=== PATIENT | female | born 1955 | race Caucasian/White ===

== ENCOUNTER 2023-04-24 09:13 | Outpatient (RCR) | payer MEDICARE, OTHER, SELFPAY | END 2023-04-24 23:59 | disposition home or self-care (01) | LOC: RST 09:13 | PROVIDERS: ATTENDING PHYSICIAN Physical Medicine & Rehabilitation; FAMILY PHYSICIAN Nurse Practitioner | DX: I69.318 Other symptoms and signs involving cognitive functions following cerebral infarction (principal); I67.9 Cerebrovascular disease, unspecified | CPT/HCPCS: 97010; 97110; 97112; 97116; 97129; 97130; 97530; 97535; 97760 ==

== ENCOUNTER 2023-04-25 15:10 | Outpatient (RCR) | payer MEDICARE, OTHER, SELFPAY | END 2023-04-25 23:59 | disposition home or self-care (01) | LOC: RPT 15:10 | PROVIDERS: ATTENDING PHYSICIAN Student in an Organized Health Care Education/Training Program; FAMILY PHYSICIAN Nurse Practitioner | DX: I97.2 Postmastectomy lymphedema syndrome (principal); C50.911 Malignant neoplasm of unspecified site of right female breast; Z73.6 Limitation of activities due to disability | CPT/HCPCS: 97140; 97163; 97535 ==

== ENCOUNTER 2023-05-24 13:45 | Outpatient (RCR) | payer MEDICARE, OTHER, SELFPAY | END 2023-05-24 23:59 | disposition home or self-care (01) | LOC: RPT 13:45 | PROVIDERS: ATTENDING PHYSICIAN Student in an Organized Health Care Education/Training Program; FAMILY PHYSICIAN Nurse Practitioner | DX: I69.318 Other symptoms and signs involving cognitive functions following cerebral infarction (principal); I69.311 Memory deficit following cerebral infarction; I69.351 Hemiplegia and hemiparesis following cerebral infarction affecting right dominant side; Z73.6 Limitation of activities due to disability; Z74.09 Other reduced mobility | CPT/HCPCS: 97140 ==

== ENCOUNTER 2023-05-31 11:15 | Outpatient (RCR) | payer MEDICARE, OTHER, SELFPAY | END 2023-05-31 23:59 | disposition home or self-care (01) | LOC: RST 11:15 | PROVIDERS: ATTENDING PHYSICIAN Physical Medicine & Rehabilitation; FAMILY PHYSICIAN Nurse Practitioner | DX: I69.318 Other symptoms and signs involving cognitive functions following cerebral infarction (principal); I69.354 Hemiplegia and hemiparesis following cerebral infarction affecting left non-dominant side; Z73.6 Limitation of activities due to disability; Z74.09 Other reduced mobility; I69.328 Other speech and language deficits following cerebral infarction; I69.310 Attention and concentration deficit following cerebral infarction; I69.311 Memory deficit following cerebral infarction; C50.919 Malignant neoplasm of unspecified site of unspecified female breast | CPT/HCPCS: 97110; 97112; 97116; 97129; 97130; 97530; 97535 ==

== ENCOUNTER 2023-06-29 12:51 | Outpatient (RCR) | payer MEDICARE, OTHER, SELFPAY | END 2023-06-29 23:59 | disposition home or self-care (01) | LOC: RST 12:51 | PROVIDERS: ATTENDING PHYSICIAN Physical Medicine & Rehabilitation; FAMILY PHYSICIAN Nurse Practitioner | DX: I69.318 Other symptoms and signs involving cognitive functions following cerebral infarction (principal); I69.310 Attention and concentration deficit following cerebral infarction; I69.311 Memory deficit following cerebral infarction; Z74.09 Other reduced mobility; Z73.6 Limitation of activities due to disability | CPT/HCPCS: 97010; 97110; 97112; 97129; 97130; 97530; 97535 ==

== ENCOUNTER 2023-07-06 12:45 | Outpatient (RCR) | payer MEDICARE, OTHER, SELFPAY | END 2023-07-06 23:59 | disposition home or self-care (01) | LOC: RST 12:45 | PROVIDERS: ATTENDING PHYSICIAN Physical Medicine & Rehabilitation; FAMILY PHYSICIAN Nurse Practitioner | DX: I69.318 Other symptoms and signs involving cognitive functions following cerebral infarction (principal); Z73.6 Limitation of activities due to disability | CPT/HCPCS: 97010; 97110; 97129; 97130; 97140; 97530; 97535 ==

== ENCOUNTER 2023-07-31 13:27 | Outpatient (RCR) | payer MEDICARE, OTHER, SELFPAY | END 2023-07-31 14:27 | disposition home or self-care (01) | LOC: RPT 13:27 | PROVIDERS: ATTENDING PHYSICIAN Student in an Organized Health Care Education/Training Program; FAMILY PHYSICIAN Nurse Practitioner | DX: I97.2 Postmastectomy lymphedema syndrome (principal); C50.919 Malignant neoplasm of unspecified site of unspecified female breast; Z73.6 Limitation of activities due to disability | CPT/HCPCS: 97110; 97140; 97535 ==

== ENCOUNTER 2023-08-31 13:33 | Outpatient (RCR) | payer MEDICARE, OTHER, SELFPAY | END 2023-08-31 23:59 | disposition home or self-care (01) | LOC: RST 13:33 | PROVIDERS: ATTENDING PHYSICIAN Physical Medicine & Rehabilitation; FAMILY PHYSICIAN Nurse Practitioner | DX: I69.318 Other symptoms and signs involving cognitive functions following cerebral infarction (principal); R27.8 Other lack of coordination; I97.2 Postmastectomy lymphedema syndrome; Z73.6 Limitation of activities due to disability | CPT/HCPCS: 97010; 97110; 97129; 97130; 97530; 97535; 97760 ==

== ENCOUNTER 2023-09-28 13:47 | Outpatient (RCR) | payer MEDICARE, OTHER, SELFPAY | END 2023-09-28 23:59 | disposition home or self-care (01) | LOC: RST 13:47 | PROVIDERS: ATTENDING PHYSICIAN Physical Medicine & Rehabilitation; FAMILY PHYSICIAN Nurse Practitioner | DX: I69.318 Other symptoms and signs involving cognitive functions following cerebral infarction (principal) | CPT/HCPCS: 97129; 97130; 97530; 97535; 97760 ==

== ENCOUNTER → 2023-10-10 09:59 | Outpatient (REF) | payer MEDICARE, OTHER, SELFPAY | LOC: RAD 09:59 | PROVIDERS: ATTENDING PHYSICIAN Surgery Vascular Surgery; FAMILY PHYSICIAN Nurse Practitioner; REFERRING PHYSICIAN Student in an Organized Health Care Education/Training Program | DX: I65.21 Occlusion and stenosis of right carotid artery (principal) | CPT/HCPCS: 93880 ==

== ENCOUNTER 2023-10-10 10:44 | Emergency (ER) | payer MEDICARE, OTHER, SELFPAY ==
[2023-10-10 10:58] VITALS: BP 162/88
--- NOTE | 2023-10-10 11:09 | ED.GENMED ---
History of Present Illness
General
Chief Complaint: Fall
Source: patient and family
Exam Limitations: none
Time Seen by Provider: 10/10/23 11:03
History of Present Illness
History of Present Illness:
68-year-old female who presents after she fell. Patient states she was coming out of the hospital after test and her foot slipped off the curb and she fell onto the concrete. She reports no complaints. She states she feels fine. She did hit the
left eyebrow. No neck pain. Has chronic back pain but no new back pain. No motor weakness. Reports a small abrasion to the left hand and knees. Denies numbness or tingling. No nausea or vomiting
Past History
Past History
ED Past Medical History: Cancer, GERD (barretts), HTN and Other (cerv/lumbar HNP)
ED Past Surgical History: Orthopedic
Social History
Tobacco: Non-smoker
Alcohol: None
Drug: None
Living: with family
Phy Exam
Physical Exam
Physical Exam:
CONSTITUTIONAL Patient alert and oriented to person, place and time. Well-appearing. Vital signs reviewed.
HEAD small abrasion to the left eyebrow.
EYES eyelids normal to inspection, Pupils equally round and reactive to light, Extraocular muscles intact, Conjunctiva normal, Sclera normal.
NECK normal range of motion, Trachea midline, no jugular venous distention. No midline tenderness
RESPIRATORY CHEST No respiratory distress noted, Chest expansion equal
BACK normal inspection, no obvious deformities, no midline tenderness
UPPER EXTREMITY range of motion normal, Motor strength normal, no cyanosis, no edema. Small left palmar abrasion. No bony wrist or elbow or forearm tenderness. No humerus tenderness. Normal range of motion of the shoulder
LOWER EXTREMITY range of motion normal, Motor strength normal, no cyanosis, no edema. Normal range of motion of bilateral knees and hip
NEURO Speech normal, No focal motor deficits, [place] coma scale 15, Memory normal, Cranial Nerves intact to screening exam.
SKIN skin warm, dry, and normal in color.
PSYCHIATRIC patient oriented to person place and time, Normal affect.
Course
Orders/Labs/Results
Orders:
Orders
10/10/23 11:09
CT Head W/o Iv Contrast Urgent
Comment:
Reason For Exam: fall
Acetaminophen [Tylenol] 650 mg PO NOW STA
10/10/23 11:21
Acetaminophen [Tylenol] 650 mg .ROUTE .STK-MED ONE
Vital Signs
Initial and Last Documented VS:
Initial Vital Signs
Temp Pulse Resp BP Pulse Ox
98.3 F 83 18 162/88 92
10/10/23 10:58 10/10/23 10:58 10/10/23 10:58 10/10/23 10:58 10/10/23 10:58
Last Documented Vital Signs
Temp Pulse Resp BP Pulse Ox
98.3 F 83 18 162/88 92
10/10/23 10:58 10/10/23 10:58 10/10/23 10:58 10/10/23 10:58 10/10/23 10:58
MDM/Problems Addressed
MDM/Problems Addressed:
acute Head injury, acute abrasions
*Radiology
Radiology exam reviewed: radiology read reviewed
*Pulse Oximetry
Patient hypoxic: no
*Critical Care Note
Total Time (30-74mins, 75-104mins- exclusive of procedures): Not Applicable
Data Reviewed
Source: patient
Further Testing Considered But Not Given:
considered CT cervical spine but no midline TTP
Patient Management
Escalation/DeEscalation of care consider admission/obs:
Nonfocal neuroexam. CT negative. Okay for discharge
ED Attending Note
-
Portions of this chart may have been created with voice recognition software.� Occasional wrong word or��sound alike� substitutions may have occurred due to the inherent limitations of voice recognition software.
Discharge Plan
Departure
Patient Disposition: Home (Routine Discharge)
Date of Disposition: 10/10/23
Time of Disposition: 12:12
Patient with high blood pressure during this ER visit?: Yes
Discharge Problem:
Head injury
Instructions: Head Injury in Adults (DC), BLOOD PRESSURE
Prescriptions:
No Action
escitalopram oxalate 10 MG tablet
10 mg PO DAILY
multivitamin Tablet
1 tab PO DAILY
olanzapine [Zyprexa] 5 mg Tablet
5 mg PO HS
esomeprazole magnesium [Nexium] 40 mg Capsule,Delayed Release(Dr/Ec)
40 mg PO DAILY
fluticasone propionate 50 mcg/actuation [place],Suspension
2 spray INTRANASAL DAILYPRN PRN (Reason: Allergies)
ondansetron HCl 8 mg Tablet
8 mg PO [id number] PRN (Reason: nausea)
famotidine [Pepcid] 40 mg Tablet
40 mg PO BIDPRN PRN (Reason: gerd)
prednisolone acetate 1 % Drops,Suspension
1 drp BOTH EYES UD
Rx Instructions:
place 1 drop both eyes qid for 3 days then 1 drop both eyes tid for 7 days then 1 drop both eyes daily for 14 days then stop patient started on 02/09/23
loratadine [Claritin] 10 mg Tablet
10 mg PO DAILY
aspirin 81 mg Tablet,Delayed Release (Dr/Ec)
81 mg PO DAILY Qty: 30 0RF
metoprolol succinate 50 mg Tablet Extended Release 24 Hr
50 mg PO DAILY Qty: 90 0RF
lisinopril 20 mg Tablet
20 mg PO DAILY@2100 Qty: 90 0RF
acetaminophen [Pain Relief ES (acetaminophen)] 500 mg Tablet
1,000 mg PO Q8HPRN PRN (Reason: mild pain) Qty: 100 0RF
baclofen 5 mg Tablet
5 mg PO TIDPRN PRN (Reason: neck spasms) Qty: 30 0RF
hydrocodone-acetaminophen 10-325 mg tablet
1 tab PO Q4H PRN (Reason: Sev pain) Qty: 1 0RF
Rx Instructions:
Take half tablet for mod pain
carboxymethylcellulose sodium 1 % Drops, Liquid Gel
1 drp BOTH EYES HS Qty: 15 0RF
alprazolam [Xanax] 0.25 mg tablet
0.25 mg PO HS PRN (Reason: Anxiety) Qty: 30 0RF
atorvastatin 40 mg Tablet
40 mg PO QPM Qty: 90 0RF
Referrals:
Chanel Delacruz CRNP [Family Provider] -
Activity Restrictions/Additional Instructions:
Please see your doctor in follow-up if any symptoms persist. Return immediately for vomiting, changes in mentation, weakness of any kind or any other concerns.
Interventions
Interventions:
*Risk Screen - Suicide Last Done: 10/10/23 10:58
*General Assessment Last Done: 10/10/23 10:58
*Neglect/Abuse Screening Last Done: 10/10/23 10:58
ED-Musculoskeletal Assessment Last Done: 10/10/23 11:24
ED- Neurological Assessment Last Done: 10/10/23 11:24
ED-Skin Assessment Last Done: 10/10/23 11:24
Discharge Date and Time
Print Language: IRISH
[2023-10-10] MEDS: TYLENOL 650 MG PO (11:21)
== END 2023-10-10 12:47 | disposition home or self-care (01) ==
LOC: EMR 10:44
PROVIDERS: EMERGENCY PHYSICIAN Emergency Medicine; FAMILY PHYSICIAN Nurse Practitioner
DX: S09.90XA Unspecified injury of head, initial encounter (principal); S00.212A Abrasion of left eyelid and periocular area, initial encounter; S60.512A Abrasion of left hand, initial encounter; W01.0XXA Fall on same level from slipping, tripping and stumbling without subsequent striking against object, initial encounter; I10 Essential (primary) hypertension
CPT/HCPCS: 99284; 70450

== ENCOUNTER → 2023-10-19 09:15 | Outpatient (REF) | payer MEDICARE, OTHER, SELFPAY | LOC: DHSLP 09:15 | PROVIDERS: ATTENDING PHYSICIAN Internal Medicine; FAMILY PHYSICIAN Nurse Practitioner | DX: G47.33 Obstructive sleep apnea (adult) (pediatric) (principal); G47.61 Periodic limb movement disorder | CPT/HCPCS: 95810 ==

== ENCOUNTER → 2023-10-20 09:00 | Outpatient (REF) | payer MEDICARE, OTHER, SELFPAY | LOC: DHSLP 09:00 | PROVIDERS: ATTENDING PHYSICIAN Internal Medicine | DX: G47.33 Obstructive sleep apnea (adult) (pediatric) (principal) | CPT/HCPCS: 95805 ==

== ENCOUNTER 2023-10-26 10:20 | Outpatient (RCR) | payer MEDICARE, OTHER, SELFPAY | END 2023-10-26 23:59 | disposition home or self-care (01) | LOC: RST 10:20 | PROVIDERS: ATTENDING PHYSICIAN Physical Medicine & Rehabilitation; FAMILY PHYSICIAN Nurse Practitioner | DX: I69.318 Other symptoms and signs involving cognitive functions following cerebral infarction (principal); Z73.6 Limitation of activities due to disability | CPT/HCPCS: 97129; 97130; 97530; 97535 ==

== ENCOUNTER 2023-11-20 09:25 | Outpatient (RCR) | payer MEDICARE, OTHER, SELFPAY | END 2023-11-20 23:59 | disposition home or self-care (01) | LOC: RST 09:25 | PROVIDERS: ATTENDING PHYSICIAN Physical Medicine & Rehabilitation; FAMILY PHYSICIAN Nurse Practitioner | DX: I69.318 Other symptoms and signs involving cognitive functions following cerebral infarction (principal) | CPT/HCPCS: 97129; 97130 ==

== ENCOUNTER 2023-12-18 11:51 | Outpatient (RCR) | payer MEDICARE, OTHER, SELFPAY | END 2023-12-18 23:59 | disposition home or self-care (01) | LOC: RST 11:51 | PROVIDERS: ATTENDING PHYSICIAN Physical Medicine & Rehabilitation; FAMILY PHYSICIAN Nurse Practitioner | DX: I69.318 Other symptoms and signs involving cognitive functions following cerebral infarction (principal); I69.354 Hemiplegia and hemiparesis following cerebral infarction affecting left non-dominant side; Z73.6 Limitation of activities due to disability; Z74.09 Other reduced mobility | CPT/HCPCS: 97129; 97130 ==

== ENCOUNTER → 2024-05-02 11:10 | Outpatient (REF) | payer MEDICARE, OTHER, SELFPAY | LOC: RAD 11:10 | PROVIDERS: ATTENDING PHYSICIAN Physician Assistant | DX: I65.21 Occlusion and stenosis of right carotid artery (principal) | CPT/HCPCS: 93880 ==

== ENCOUNTER → 2024-11-13 13:47 | Outpatient (REF) | payer MEDICARE, OTHER, SELFPAY | LOC: HWRAD 13:47 | PROVIDERS: ATTENDING PHYSICIAN Surgery Vascular Surgery; REFERRING PHYSICIAN Student in an Organized Health Care Education/Training Program | DX: I65.21 Occlusion and stenosis of right carotid artery (principal); I65.29 Occlusion and stenosis of unspecified carotid artery | CPT/HCPCS: 93880 ==